=== PATIENT | male | born 1990 | race American Indian/Alaskan Native ===

== ENCOUNTER 2021-04-04 14:52 | Emergency (ER) | payer SELFPAY ==
[2021-04-04] MEDS ORDERED: HYDROcodone/ACETAMINOPHEN 5-325 MG TAB PO ONE (16:06)
[2021-04-04] MEDS ORDERED: NEOMY 3.5 MG/BACIT 400 UNITS/POLY B 5000 UNITS/GM OINT PACKET TP ONE (16:06)
[2021-04-04] MEDS ORDERED: LIDOCAINE (1%) 10 MG/1 ML VIAL 20 ML MDV INFILTRATI ONE (16:06)
[2021-04-04 18:14] VITALS: BP 132/88
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
== END 2021-04-04 19:08 | disposition home or self-care (01) ==
LOC: ED 14:52
DX: S01.81XA Laceration without foreign body of other part of head, initial encounter (principal); S61.411A Laceration without foreign body of right hand, initial encounter; R68.84 Jaw pain; W18.39XA Other fall on same level, initial encounter; Y93.89 Activity, other specified; Y92.89 Other specified places as the place of occurrence of the external cause; Y99.8 Other external cause status
CPT/HCPCS: 12013; 70486; 99283; J3490